=== PATIENT | male | born 1995 | race Two or more races ===

== ENCOUNTER 2019-06-20 20:40 | Emergency (ER) | payer OTHER ==
[~2019-06-20] VITALS: Ht 149.9 cm; Wt 49.9 kg
[2019-06-20] MEDS ORDERED: ZYLOPRIM100 M1 PO (20:53)
[2019-06-20] MEDS ORDERED: RISPERDAL2 MG PO (20:53)
[2019-06-20] MEDS ORDERED: BACLOFEN20 MG PO (20:53)
[2019-06-20] MEDS ORDERED: VALIUM PO (20:54)
== END 2019-06-21 01:46 | disposition home or self-care (01) ==
LOC: ER 20:40
DX: E79.1 Lesch-Nyhan syndrome (principal); R10.84 Generalized abdominal pain

== ENCOUNTER 2020-05-08 09:50 | Inpatient (IN) | payer OTHER ==
[~2020-05-08] VITALS: Ht 152.4 cm; Wt 45.4 kg
[~2020-05-08 09:50] MED LIST: BACLOFEN20 MG PO; RISPERDAL2 MG PO; VALIUM PO; ZYLOPRIM100 M1 PO
[2020-05-09] MEDS ORDERED: CIPRO500 MG/5 M PO (10:16)
== END 2020-05-09 14:07 | disposition home or self-care (01) | DRG 342 ==
LOC: ER 09:50 → SURH 16:51 → SEC-K 16:51 → O/R 20:20 → SURH 21:06
PROVIDERS: ADMIT Surgery; ATTEND Surgery
PROC: BW2110Z Computerized Tomography (CT Scan) of Abdomen and Pelvis using Low Osmolar Contrast, Unenhanced and Enhanced (ICD-10-PCS; 2020-05-08)
PROC: 0DTJ0ZZ Resection of Appendix, Open Approach (ICD-10-PCS; principal; 2020-05-08 19:00)
DX: K35.890 Other acute appendicitis without perforation or gangrene (principal); E79.1 Lesch-Nyhan syndrome; Z20.822 Contact with and (suspected) exposure to COVID-19